=== PATIENT | male | born 1995 | race African-American/Black ===

== ENCOUNTER 2018-06-10 01:57 | Emergency (ER) | payer SELFPAY ==
[2018-06-10] MEDS ORDERED: Metoclopramide HCl 10 MG/2 ML VIAL ONE (02:44)
[2018-06-10] MEDS ORDERED: diphenhydrAMINE 25 MG CAP ONE (02:55)
[2018-06-10] MEDS ORDERED: Acetaminophen 500 MG TAB ONE (03:02)
[2018-06-10 03:42] LABS: #Lymphocytes 2.1 thou/uL (1.20-3.40); #Monocytes 0.6 thou/uL (0.11-0.59); #Neutrophils 8.4 thou/uL (1.40-6.50); %Basophils 0.2 % (0.0-1.0); %Eosinophils 0.3 % (0.0-10.0); %Lymphocytes 18.8 % (21.0-51.0); %Monocytes 5.5 % (0.0-10.0); %Neutrophils 75.2 % (42.0-75.0); Hemoglobin 17.1 g/dL (14.0-18.0); Mean Corpuscular HGB CONC 34.1 g/dL (32.0-36.0); Mean Corpuscular Hemoglobin 30.6 pg (27.0-31.0); Mean Corpuscular Volume 89.8 fL (78.0-98.0); Mean Platelet Volume 9.4 fL (7.4-10.4); Platelet Count 164 thou/uL (130-400); RBC Distribution Width 12.2 % (11.5-14.5); Red Blood Cell (RBC) Count 5.59 mill/uL (4.70-6.10); White Blood Cell (WBC) Count 11.2 thou/uL (4.8-10.8)
[2018-06-10 04:05] LABS: ALT (SGPT) 17 U/L (8-55); AST (SGOT) 18 U/L (5-34); Albumin 4.3 g/dL (3.5-5.0); Alkaline Phosphatase 57 U/L (40-150); Anion Gap 12 mmol/L (10-20); BUN (Urea Nitrogen) 11 mg/dL (8.9-20.6); Bilirubin, Total 0.6 mg/dL (0.2-1.2); CK (CPK) 109 U/L (30-200); Calc. Creatinine Clearance 0 mL/min (70-130); Calcium 9.1 mg/dL (7.8-10.44); Carbon Dioxide 27 mmol/L (22-29); Chloride 101 mmol/L (98-107); Estimated GFR-MDRD Greater than 90; Globulin 2.6 g/dL (2.4-3.5); Glucose 89 mg/dL (70-105); Potassium 3.3 mmol/L (3.5-5.1); Protein, Total 6.9 g/dL (6.0-8.3); Sodium 137 mmol/L (136-145)
--- NOTE | 2018-06-10 07:47 | CT ---
PRELIMINARY REPORT/[facility]/EMERGENTY AFTER-HOURS PROCEDURE CT Head Without Intravenous Contrast CLINICAL HISTORY: 22 years old, male; Pain; Headache; Headache not specified; Patient HX: Pt says nauseated and headach e starting one hour ago, says been out of BP meds for 9 months and believes BP is high TECHNIQUE: Axial computed tomography images of the head/brain without intravenous contrast. COMPARISON: No relevant prior studies available. FINDINGS: Brain: No acute findings. No hemorrhage. No significant white matter disease. No edema. Ventricles: No acute findings. No ventriculomegaly. Bones/joints: No acute fracture. Soft tissues: No acute findings. Sinuses: No acute findings. No significant air fluid levels. Mastoid air cells: No acute findings. No significant fluid. IMPRESSION: No acute findings. Thank you for allowing us to participate in the care of your patient. Dictated and Authenticated by: Jarrell Bustamante MD 06/10/2018 4:21 AM Central Time ([place] & [place]) CT HEAD NONCONTRAST: Date: 06-10-18 Performed on emergency basis at 0301 hours. History: Headache. FINDINGS: No comparison. I agree with the preliminary report by Dr. Bustamante from [facility]. No acute intr acranial abnormalities are demonstrated. Code QA POS: [facility]
== END 2018-06-10 04:15 | disposition home or self-care (01) ==
LOC: ERS 01:57
DX: G44.209 Tension-type headache, unspecified, not intractable (principal); I10 Essential (primary) hypertension
CPT/HCPCS: 70450; 80053; 82550; 85025; 93005; 96374; J2765

== ENCOUNTER 2019-06-18 02:45 | Emergency (ER) | payer SELFPAY ==
[2019-06-18 03:25] LABS: #Monocytes 1.1 thou/uL (0.11-0.59); #Neutrophils 6.7 thou/uL (1.40-6.50); %Basophils 0.3 % (0.0-1.0); %Eosinophils 0.2 % (0.0-10.0); %Lymphocytes 20.5 % (21.0-51.0); %Monocytes 10.7 % (0.0-10.0); %Neutrophils 68.3 % (42.0-75.0); Hemoglobin 14.7 g/dL (14.0-18.0); Mean Corpuscular HGB CONC 35.2 g/dL (32.0-36.0); Mean Corpuscular Hemoglobin 31.4 pg (27.0-31.0); Mean Corpuscular Volume 89.4 fL (78.0-98.0); Mean Platelet Volume 9.1 fL (7.4-10.4); Platelet Count 137 thou/uL (130-400); RBC Distribution Width 11.8 % (11.5-14.5); Red Blood Cell (RBC) Count 4.68 mill/uL (4.70-6.10); White Blood Cell (WBC) Count 9.8 thou/uL (4.8-10.8)
[2019-06-18 03:45] LABS: ALT (SGPT) 20 U/L (8-55); AST (SGOT) 20 U/L (5-34); Albumin 4.6 g/dL (3.5-5.0); Alkaline Phosphatase 73 U/L (40-110); Anion Gap 12 mmol/L (10-20); BUN (Urea Nitrogen) 11 mg/dL (8.9-20.6); Bilirubin, Total 0.5 mg/dL (0.2-1.2); Calc. Creatinine Clearance 0 mL/min (70-130); Calcium 9.2 mg/dL (7.8-10.44); Carbon Dioxide 28 mmol/L (22-29); Chloride 101 mmol/L (98-107); Estimated GFR-MDRD Greater than 90; Globulin 3.4 g/dL (2.4-3.5); Glucose 96 mg/dL (70-105); Potassium 3.9 mmol/L (3.5-5.1); Sodium 137 mmol/L (136-145)
[2019-06-18] MEDS ORDERED: Dexamethasone 10 MG/ML VIAL ONE (03:47)
[2019-06-18] MEDS ORDERED: Acetaminophen 325 MG TAB ONE (04:48)
--- NOTE | 2019-06-20 23:09 | EKG ---
Test Reason : Blood Pressure : / mmHG Vent. Rate : 084 BPM Atrial Rate : 084 BPM P-R Int : 156 ms QRS Dur : 076 ms QT Int : 330 ms P-R-T Axes : 052 033 001 degrees QTc Int : 389 ms Normal sinus rhythm with sinus arrhythmia No STEMI Normal ECG Confirmed by KOBY CRAVEN M.D. ([id number]), deputy editor in chief KAITLYNN DEMARCO ([id number]) on 06/20/2019 11:09:20 PM Referred By: Confirmed By:KOBY CRAVEN M.D.
== END 2019-06-18 04:50 | disposition home or self-care (01) ==
LOC: ERS 02:45
DX: J02.9 Acute pharyngitis, unspecified (principal); I10 Essential (primary) hypertension
CPT/HCPCS: 36415; 80053; 85025; 87081; 87430; 87804; 93005; J1100

== ENCOUNTER 2023-09-24 19:55 | Emergency (ER) | payer SELFPAY | END 2023-09-24 20:40 | disposition home or self-care (01) | LOC: ERS 19:55 | DX: H66.92 Otitis media, unspecified, left ear (principal); I10 Essential (primary) hypertension | CPT/HCPCS: 99283 ==